=== PATIENT | female | born 2000 | race Two or more races ===

== ENCOUNTER 2024-11-27 12:15 | Emergency (ER) | payer OTHER, SELFPAY ==
[2024-11-27 12:16] VITALS: BMI 53.4
[2024-11-27 12:55] VITALS: BP 144/81; PULSE 98; RESP 18; TEMP 36.9; O2SAT 98
--- NOTE | 2024-11-27 12:57 | XR_ITS ---
Examination: PA lateral chest 2 views TECHNIQUE: Upright PA lateral chest 2 views Date and time: 11/27/2024 1430 hours INDICATIONS: Acute chest pain today. FINDINGS: Normal heart size. Lungs are clear. The osseous structures are intact IMPRESSION: No active disease
--- NOTE | 2024-11-27 12:57 | XR_ITS ---
Examination: Abdomen sonogram, Limited Date and time of exam: November 27, 2024 1309 hours INDICATIONS: Nausea vomiting heartburn 2 days Technique: Real-time johansen scale transabdominal sonographic images of the upper abdomen obtained. Findings: Multiple gallstones Normal gallbladder wall Normal common bile duct 0.4 cm Pancreatic head 2.7 cm Liver 14.7 cm no liver lesions Normal hepatopedal portal venous flow Patent IVC IMPRESSION: Cholelithiasis, negative for cholecystitis
--- NOTE | 2024-11-27 12:57 | EKG_ITS ---
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
[2024-11-27] MEDS: ONDANSETRON ODT 4 MG TABRAP PO (13:05)
[2024-11-27] MEDS: ACETAMINOPHEN 500 MG TABLET 1000 MG PO (13:05)
[2024-11-27 13:47] LABS: Basophils # (Auto) 0.1 Thou/mm3 (0.0-0.2); Basophils % (Auto) 0 % (0-2.5); Eosinophils # (Auto) 0.1 Thou/mm3 (0.0-0.5); Eosinophils % (Auto) 1 % (0-10); Hematocrit 37.3 % (36.0-46.0); Hemoglobin 12.7 g/dL (12.0-16.0); Immature Granulocytes % (Auto) 0 % (0-0); Immature Granulocytes Auto 0.04 Thou/mm3 (0.00-0.00); Lymphocytes # (Auto) 2.8 Thou/mm3 (1.0-4.8); Lymphocytes % (Auto) 19 % (10-50); Mean Corpuscular Hemoglobin 26.9 pg (25.0-35.0); Mean Corpuscular Volume 79 fL (80-100); Monocytes # (Auto) 0.7 Thou/mm3 (0.0-0.8); Monocytes % (Auto) 5 % (0-12); Neutrophils # (Auto) 10.6 Thou/mm3 (1.8-7.7); Neutrophils % (Auto) 75 % (37-80); Nucleated Red Blood Cell % 0 /100 WBC (0); Platelet Count 458 Thou/mm3 (140-440); RDW Standard Deviation 38.2 fL (36.4-46.3); Red Blood Count 4.72 Miln/mm3 (4.00-5.20); White Blood Count 14.2 Thou/mm3 (3.6-11.0)
--- NOTE | 2024-11-27 13:53 | XR_ITS ---
Examination: CT abdomen and pelvis without contrast. Coronal 3-D reconstructions. Sagittal 2-D reconstructions. Date and time of exam:November 27, 2024 1424 hours INDICATIONS: Lower abdominal pain nausea vomiting today CTDI: vol (mGy): 22.9 DLP: (mGycm): 1490 Technique: Axial images of the abdomen have been obtained, 3 mm slice thickness Intravenous contrast material has not been administered. Low dose protocols were performed. One or more of the following dose reduction techniques were used; automated exposure control, adjustment of the mA and/or KV according to patient size, use of iterative reconstruction technique. Findings: No focal liver or splenic lesions No gallstones No pancreatic or adrenal mass No renal or ureteral calculi, no hydronephrosis Tiny fat-containing umbilical hernia. Normal appendix No bowel obstruction No diverticulitis Anteverted uterus No adnexal mass Urinary bladder intact Mild to moderate disc narrowing lumbar disc spaces IMPRESSION: No renal or ureteral calculi, no hydronephrosis Normal appendix No bowel obstruction diverticulitis or free air
[2024-11-27 13:57] LABS: Collection Type, Urine Clean Catch
[2024-11-27 14:05] LABS: HCG,Qualitative Serum Negative
--- NOTE | 2024-11-27 14:08 | PC.NURSE ---
INFORMED CT THAT PT'S HCG WAS NEGATIVE SO PT CAN HAVE HER CT SCAN. NO ANSWER IN XRAY WHEN CALLED TO SEE WHEN SHE WOULD BE CALLED.
[2024-11-27 14:21] LABS: Alanine Aminotransferase 9 U/L (10-49); Albumin, Serum 4.4 gm/dL (3.5-5.0); Albumin/Globulin Ratio 1.6 (1.2-2.2); Alkaline Phosphatase 70 U/L (46-116); Anion Gap 9 (7-16); Aspartate Amino Transferase 12 U/L (0-34); BUN/Creatinine Ratio 10 Ratio (12-20); Bilirubin,Total 0.3 mg/dL (0.3-1.2); Blood Urea Nitrogen 7 mg/dL (9-23); Carbon Dioxide 23.7 mMol/L (20.0-31.0); Chloride 104 mMol/L (98-107); Creatinine (Component) 0.7 mg/dL (0.6-1.3); Estimated Creatinine Clearance 168.7 mL/min (>60); Globulin 2.7 gm/dL (2.3-3.5); Glucose 105 mg/dL (74-106); Lipase 27 U/L (12-53); Osmolality,Calculated 271 (275-295); Potassium 4.2 mMol/L (3.4-5.1); Sodium 137 mMol/L (136-145); Total Protein 7.1 gm/dL (5.7-8.2); Troponin I < 0.002 ng/mL (0.0-0.045); eGFR > 60 See Note
[2024-11-27 14:28] LABS: Bacteria,Urine 1+; Bilirubin,Urine Negative (Negative); Blood,Urine Negative (Negative); Clarity,Urine Turbid (Clear/Hazy); Color,Urine Yellow (Lt Yel-Yel); Glucose, Urine Negative (Negative); Ketones,Urine Negative (Negative); Leukocyte Esterase,Urine Negative (Negative); Nitrite,Urine Negative (Negative); PH,Urine 5.5 (5.0-7.0); Protein,Urine Trace (Neg - Trace); RBC,Urine 6 /hpf (0-3); Squamous Epithelial Cell,Urine 10 /hpf (0-5); Urobilinogen,Urine Negative mg/dL (0.0-1.0); WBC,Urine 6 /hpf (0-5)
--- NOTE | 2024-11-27 14:28 | PC.NURSE ---
CALLED X-RAY RE: WHEN PT WILL BE TAKEN. SHE IS NEXT.
[2024-11-27 14:42] LABS: Culture Indicated,Urine Yes
--- NOTE | 2024-11-27 15:40 | EDNOTE_ITS ---
Nausea/Vomit./Diarrhea-RME/HPI General Chief complaint: Weakness Stated complaint: N/V, LIGHTHEADED, WEAKNESS THIS AM Time Seen by Provider: 11/27/24 12:18 Arrival date/time: 11/27/24 12:15 24-year-old female with no significant medical problems presents to the emergency department today for complaints of feeling lightheaded nauseous and having abdominal pain with generalized fatigue today. Limitations: no limitations Related Data Previous Rx's ?Medication ?Instructions ?Recorded acetaminophen 500 mg capsule 1,000 mg (2 x 500 mg) PO Q8HR PRN 11/27/24 pain #30 caps ondansetron 4 mg disintegrating 4 mg PO Q8H PRN nausea and 11/27/24 tablet vomiting #10 tabs Allergies Allergy/AdvReac Type Severity Reaction Status Date / Time No Known Allergies Allergy Verified 11/27/24 12:19 Review of Systems Review of Systems Systems Reviewed: All systems reviewed, normal except as documented Constitutional Constitutional: Reports system reviewed and no additional complaints, except as documented, Denies fever(s) and Denies headache(s) Eyes Eyes: Reports system reviewed and no additional complaints, except as documented and Denies blurry vision ENT Ears, Nose, Mouth, and Throat: Reports system reviewed and no additional complaints, except as documented, Denies headache(s), Denies nasal congestion and Denies nasal discharge Cardiovascular Cardiovascular: Reports system reviewed and no additional complaints, except as documented, Denies chest pain and Denies dyspnea Respiratory Respiratory: Reports system reviewed and no additional complaints, except as documented, Denies chest congestion, Denies cough and Denies dyspnea Gastrointestinal Gastrointestinal: Reports system reviewed and no additional complaints, except as documented, Reports abdominal pain, Reports nausea and Reports vomiting Integumentary/Breasts Skin/Breast: Reports system reviewed and no additional complaints, except as documented and Denies rash Neurologic Neurologic: Reports system reviewed and no additional complaints, except as documented, Reports as per HPI and Denies headache(s) Past Medical History Social History SMOKING STATUS: Never smoker ED Exam General Limitations: Present no limitations General appearance: Present alert and in no apparent distress Head Head exam: Present atraumatic Eye Eye exam: Present normal appearance, PERRL and EOMI; Absent conjunctival injection ENT ENT exam: Present normal exam, normal oropharynx and mucous membranes moist Neck Neck exam: Present normal inspection, full ROM and trachea midline Chest Chest inspection: Present normal inspection and symmetric chest wall rise Respiratory Respiratory exam: Present normal lung sounds bilaterally; Absent respiratory distress Cardiovascular Cardiovascular exam: Present regular rate, normal rhythm and normal heart sounds Abdominal Exam Abdominal exam: Present soft, tenderness (Mild tenderness upper abdomen) and normal bowel sounds; Absent distention, guarding, rebound or rigidity Abdominal tenderness: Present epigastrium Extremities Exam Extremities exam: Present normal inspection and full ROM Back Exam Back exam: Present normal inspection and full ROM Neurological Exam Neurological exam: Present alert, oriented X3 and CN II-XII intact Psychiatric Psychiatric exam: Present normal affect and normal mood Skin Skin exam: Present warm, dry, intact and normal color Course Quality Measures none Orders Category Date Time Status EKG (ED ONLY) *Do not use* NOW Care 11/27/24 12:[address] abdomen pelvis wo con Stat Exams 11/27/24 13:53 Completed EKG (ED Only) Stat Exams 11/27/24 12:57 Draft US gall bladder Stat Exams 11/27/24 12:57 Completed XR chest 2V Stat Exams 11/27/24 12:57 Completed CBC Stat Lab 11/27/24 13:24 Completed Comprehensive Metabolic Panel Stat Lab 11/27/24 13:24 Completed HCG,Qualitative Serum Stat Lab 11/27/24 13:24 Completed Lipase Stat Lab 11/27/24 13:24 Completed Troponin I Stat Lab 11/27/24 13:24 Completed UA, C/S IF [Urinalysis, C/S if Indicated] Stat Lab 11/27/24 13:30 Completed Urine Culture Stat Lab 11/27/24 13:30 Received Acetaminophen Tab [Tylenol ES Tab] Med 11/27/24 12:58 Discontinued 1,000 mg PO X1 ONE Ondansetron Odt [Zofran Odt] Med 11/27/24 12:57 Discontinued 4 mg PO X1 ONE Vital Signs Vital signs: Vital Signs Temperature 98.5 F 11/27/24 12:55 Pulse Rate 98 11/27/24 12:55 Respiratory Rate 18 11/27/24 12:55 Blood Pressure 144/81 H 11/27/24 12:55 Pulse Oximetry (%) 98 11/27/24 12:55 Oxygen Delivery Method Room Air 11/27/24 12:55 O2 saturation 98% room air within normal limits Procedures -ED EKG Interpretation #1: Date of EK11/27/24 Time of EK:01 Rate: 102 Interpretation: Interpreted by me EKG Impression: Normal sinus rhythm, No acute ST-T changes, No ectopy, No ischemic changes, Normal QRS, Normal intervals and Normal axis Nausea/Vomiting/Diarrhea MDM Narrative MDM Narrative:: 24-year-old female with no significant medical problems presents to the emergency department today for complaints of feeling lightheaded nauseous and having abdominal pain with generalized fatigue today. On exam patient well-appearing patient does not appear ill or toxic no acute distress on exam patient has mild tenderness to the upper abdomen and right upper quadrant no definite Epps sign Lab work and imaging obtained patient per ultrasound has gallstones without cholecystitis Lab work obtained no acute emergent findings noted Patient was given medication here she reports this relieved her symptoms of nausea EKG obtained and reviewed Patient discharged home in no distress to follow-up with primary care doctor in the next 24 to 48 hours and for any worsening symptoms to return to the ER immediately Patient data External records reviewed:: [facility] previous records Clinical information provided by:: patient Social determinants that could affect healthcare access:: none Patient has the following chronic illnesses:: None How is presenting disease/condition affected by chronic disease/condition?: no chronic disease Evaluation data The following diagnostics were reviewed and interpreted by me:: lab results, radiology exam(s) and EKG tracing(s) Lab and/or radiology exams considered but not ordered:: Labs radiology EKG obtained Interpretation Summary: Reviewed by me Medications / Prescriptions Medications / Prescriptions considered but not ordered:: Given Medication administrations:: Medication Administration History Discontinued Medications Acetaminophen (Acetaminophen 500 Mg Tablet) 1,000 mg PO X1 ONE Stop: 11/27/24 12:59 Last Admin: 11/27/24 13:05 Dose: 1,000 mg Documented By: AMELIA Ondansetron HCl (Ondansetron Odt 4 Mg Tabrap) 4 mg PO X1 ONE; Protocol Stop: 11/27/24 12:58 Last Admin: 11/27/24 13:05 Dose: 4 mg Documented By: AMELIA Given Consultations Consultation(s) initiated? (list below): No Diagnosis Nausea Differential Diagnosis: traveler's diarrhea, food poisoning and gastroenteritis Most likely diagnosis given after review of the tests above:: Nausea vomit diarrhea Admission Indicated Admission indicated?: not indicated Admission Request Was there a request for admission?: No Disposition Plan Disposition Plan: Discharge Discharge Attestation Discharge Attestation: The patient and all family members were given an opportunity to ask questions and understood the discharge instructions. Discharge instructions specifically effects, indications for sooner follow up or return to the emergency department, and the expected course of current diagnosis. Patient condition: Stable Discharge Plan Plan Patient Disposition: HOME (Self Care) Discharge Disposition comment: Stable Prescriptions/Referrals Prescriptions/Med Rec: New ondansetron 4 mg tablet,disintegrating 4 mg PO Q8H PRN (Reason: nausea and vomiting) Qty: 10 0RF acetaminophen 500 mg capsule 1,000 mg PO Q8HR PRN (Reason: pain) Qty: 30 0RF Referrals: No Primary/Family,Physician [Primary Care Provider] - 11/29/24 Problem List Clinical Impression: Nausea & vomiting, Gallstones Patient/Caregiver Discharge Instructions Education Materials: Treating Gallstones Additional Instructions: Please follow up with your primary care doctor in the next 24-48hrs for any worsening symptoms return here immediately Print Language: Turkmen Stand Alone Forms: Rachel Award Info., Work/School Release, Patient Portal Info Letter SLIM/GAIL Supervising Physician SLIM/GAIL Supervising Physician: Dr. tapia
== END 2024-11-27 15:46 | disposition home or self-care (01) ==
PROVIDERS: Nurse Practitioner Primary Care; Emergency Provider Family Medicine
DX: K80.20 Calculus of gallbladder without cholecystitis without obstruction (principal); R07.9 Chest pain, unspecified; R94.31 Abnormal electrocardiogram [ECG] [EKG]
CPT/HCPCS: 36415; 71046; 74176; 76705; 80053; 81001; 83690; 84484; 84703; 85025; 87077; 87086; 87186; 93005; 99284; Q0162; A9270